=== PATIENT | male | born 1945 | race Caucasian/White ===

== ENCOUNTER → 2016-11-08 | Outpatient (CLI) | payer MEDICARE ==
[~2016-11-08] MED LIST: OMNIPAQUE 350 MG/ML, 75ML BOTTLE ONE
== END | disposition home or self-care (01) ==
LOC: CFH 09:54
PROVIDERS: ATTEND Nurse Practitioner Family
DX: I25.10 Atherosclerotic heart disease of native coronary artery without angina pectoris (principal); J42 Unspecified chronic bronchitis; K76.0 Fatty (change of) liver, not elsewhere classified
CPT/HCPCS: 71260; Q9967

== ENCOUNTER → 2016-12-11 | Outpatient (CLI) | payer MEDICARE ==
[~2016-12-11] MED LIST changes: -OMNIPAQUE 350 MG/ML, 75ML BOTTLE ONE; +REGADENOSON 0.4 MG/5 ML SYRINGE ONE
== END | disposition home or self-care (01) ==
LOC: CFH 06:41
PROVIDERS: ATTEND Internal Medicine Cardiovascular Disease
DX: I35.8 Other nonrheumatic aortic valve disorders (principal); I20.9 Angina pectoris, unspecified; I10 Essential (primary) hypertension; R94.31 Abnormal electrocardiogram [ECG] [EKG]; E11.9 Type 2 diabetes mellitus without complications
CPT/HCPCS: 78452; 93017; 93306; A9502; J2785

== ENCOUNTER → 2017-11-26 | Outpatient (CLI) | payer MEDICARE | END | disposition home or self-care (01) | LOC: RAD 07:59 | PROVIDERS: ATTEND Internal Medicine Cardiovascular Disease | DX: I10 Essential (primary) hypertension (principal); R94.31 Abnormal electrocardiogram [ECG] [EKG] | CPT/HCPCS: 78452; 93017; A9502; J2785 ==

== ENCOUNTER 2018-02-07 17:17 | Emergency (ER) | payer MEDICARE ==
[~2018-02-07] VITALS: Ht 177.8 cm; Wt 132.8 kg
[2018-02-07 17:27] VITALS: BP 110/74
[2018-02-07] MEDS ORDERED: OXYcodone/APAP 5/325MG TABLET PO ONE (18:30)
[2018-02-07] MEDS ORDERED: ONDANSETRON ODT 4 MG PO ONE (18:30)
== END 2018-02-07 19:00 | disposition home or self-care (01) ==
LOC: ED 18:45
DX: S30.0XXA Contusion of lower back and pelvis, initial encounter (principal); E78.5 Hyperlipidemia, unspecified; E78.00 Pure hypercholesterolemia, unspecified; I10 Essential (primary) hypertension; E11.9 Type 2 diabetes mellitus without complications; F17.200 Nicotine dependence, unspecified, uncomplicated; W11.XXXA Fall on and from ladder, initial encounter; Y93.89 Activity, other specified; Y99.8 Other external cause status; Y92.096 Garden or yard of other non-institutional residence as the place of occurrence of the external cause
CPT/HCPCS: 72131; 99284

== ENCOUNTER 2018-02-15 10:14 | Inpatient (IN) | payer MEDICARE ==
[~2018-02-15] VITALS: Ht 177.8 cm; Wt 131.2 kg
[2018-02-15] MEDS ORDERED: SODIUM CHLORIDE FLUSH 10ML SYR IVF ONE (11:00)
[2018-02-15] MEDS ORDERED: MORPHINE SULFATE 4 MG/ML, 1ML IVPush PRN (11:00)
[2018-02-15] MEDS ORDERED: MORPHINE SULFATE 4 MG/ML, 1ML ONE (11:20)
[2018-02-15 12:27] LABS: BASOPHILS # (AUTO) 0.03 x10^3/uL (0-0.1); BASOPHILS % (AUTO) 0 % (0-1); EOSINOPHILS # (AUTO) 0.03 x10^3/uL (0-0.4); EOSINOPHILS % (AUTO) 0 % (1-7); LYMPHOCYTES # (AUTO) 1.84 x10^3/uL (1-3.4); LYMPHOCYTES % (AUTO) 15 % (22-44); MD NO; MEAN CORPUSCULAR HEMOGLOBIN 31.6 pg (27.5-34.5); MEAN CORPUSCULAR HGB CONC 33.9 g/dL (33.2-36.2); MEAN CORPUSCULAR VOLUME 93.2 fL (81-97); MEAN PLATELET VOLUME 9.8 fL (7.4-10.4); MONOCYTES # (AUTO) 0.99 x10^3/uL (0.2-0.8); MONOCYTES % (AUTO) 8 % (2-9); NEUTROPHILS # (AUTO) 9.85 x10^3/uL (1.8-6.8); NEUTROPHILS % (AUTO) 77 % (42-75); PLATELET COUNT 234 x10^3/uL (130-400); RED BLOOD COUNT 5.04 x10^6/uL (4.38-5.82); RED CELL DISTRIBUTION WIDTH 14.5 % (9.4-14.8)
[2018-02-15 12:32] LABS: CULTURE INDICATED? YES; MICROSCOPIC INDICATED
[2018-02-15 12:33] LABS: INTERNATIONAL NORMALIZED RATIO 1.11 (0.93-1.1); PROTHROMBIN TIME 11.4 Seconds (9.6-11.5)
[2018-02-15] MEDS ORDERED: GLIP5TAB22 PO (12:35)
[2018-02-15] MEDS ORDERED: CITA20TA6 PO (12:35)
[2018-02-15] MEDS ORDERED: FENO160T PO (12:35)
[2018-02-15] MEDS ORDERED: ATOR-2 PO (12:35)
[2018-02-15] MEDS ORDERED: ASPI-496 PO (12:35)
[2018-02-15] MEDS ORDERED: IRBE1TAB37 PO (12:35)
[2018-02-15 12:37] LABS: ALBUMIN 3.9 g/dL (3.4-5.0); ANION GAP 5 mmol/L (5-15); CALCIUM 9.3 mg/dL (8.5-10.1); CHLORIDE 107 mmol/L (98-107); CREATININE 1.04 mg/dL (0.7-1.3)
[2018-02-15] MEDS ORDERED: HYDROmorphone 2 MG/ML, 1ML IVPush PRN ×2 (14:00→15:00)
[2018-02-15] MEDS ORDERED: HYDROmorphone 2 MG/ML, 1ML ONE ×2 (14:21→15:26)
[2018-02-15] MEDS ORDERED: ACETAMINOPHEN 325 MG TABLET PO PRN (15:30)
[2018-02-15] MEDS ORDERED: DEXTROSE 4 GM TAB.CHEW PO PRN (15:30)
[2018-02-15] MEDS ORDERED: POLYETHYLENE GLYCOL 17 GM PACKET PO PRN (15:30)
[2018-02-15] MEDS ORDERED: BACLOFEN 10 MG TABLET PO PRN (15:30)
[2018-02-15] MEDS ORDERED: ONDANSETRON 2MG/ML, 2ML IVPush PRN (15:30)
[2018-02-15] MEDS ORDERED: NITROGLYCERIN 0.4 MG BOTTLE (25 TABS) SL PRN (15:30)
[2018-02-15] MEDS ORDERED: DEXTROSE 50%, 50ML SYRINGE IVPush PRN (15:30)
[2018-02-15] MEDS ORDERED: morphine SULFATE 10 MG/ML, 1ML IVPush PRN (15:30)
[2018-02-15] MEDS ORDERED: GLUCAGON 1 MG IM PRN (15:30)
[2018-02-15] MEDS ORDERED: ONDANSETRON ODT 4 MG PO PRN (15:30)
[2018-02-15] MEDS ORDERED: NITROGLYCERIN 0.4 MG/SPRAY SL PRN (15:30)
[2018-02-15] MEDS ORDERED: NICOTINE 14MG/24 HR PATCH.TD24 TD ONE (16:00)
[2018-02-15 17:00] VITALS: BP 157/57
[2018-02-15] MEDS: GABAPENTIN 100 MG CAPSULE PO SCH ×2 (17:13→20:08)
[2018-02-15] MEDS: KETOROLAC 30 MG/1 ML IV PRN (17:14)
[2018-02-15] MEDS: INSULIN LISPRO 100 UNITS/ML, PEN SQ-INSULIN SCH ×2 (17:15→20:12)
[2018-02-15] MEDS: ENOXAPARIN 40 MG/0.4 ML SQ SCH (19:39)
[2018-02-15 20:00] VITALS: BP 129/69
[2018-02-15] MEDS: ASPIRIN 81 MG TABLET EC PO SCH (20:08)
[2018-02-15] MEDS: ATORVASTATIN 80 MG TABLET PO SCH (20:08)
[2018-02-15] MEDS: SODIUM CHLORIDE FLUSH 10ML SYR IVF SCH (20:09)
[2018-02-15] MEDS ORDERED: TRAZODONE 50MG TABLET PO PRN (21:00)
[2018-02-16] MEDS: OXYcodone IR 5MG TABLET PO PRN ×3 (00:08→19:34)
[2018-02-16 01:35] VITALS: BP 125/72
[2018-02-16] MEDS: GABAPENTIN 100 MG CAPSULE PO SCH ×3 (05:33→19:33)
[2018-02-16] MEDS: INSULIN LISPRO 100 UNITS/ML, PEN SQ-INSULIN SCH ×4 (07:00→19:39)
[2018-02-16 07:31] LABS: BASOPHILS # (AUTO) 0.03 x10^3/uL (0-0.1); BASOPHILS % (AUTO) 0 % (0-1); EOSINOPHILS # (AUTO) 0.06 x10^3/uL (0-0.4); EOSINOPHILS % (AUTO) 1 % (1-7); LYMPHOCYTES # (AUTO) 1.26 x10^3/uL (1-3.4); LYMPHOCYTES % (AUTO) 14 % (22-44); MD NO; MEAN CORPUSCULAR HEMOGLOBIN 31.1 pg (27.5-34.5); MEAN CORPUSCULAR HGB CONC 33.2 g/dL (33.2-36.2); MEAN CORPUSCULAR VOLUME 93.6 fL (81-97); MEAN PLATELET VOLUME 9.4 fL (7.4-10.4); MONOCYTES # (AUTO) 0.61 x10^3/uL (0.2-0.8); MONOCYTES % (AUTO) 7 % (2-9); NEUTROPHILS # (AUTO) 6.87 x10^3/uL (1.8-6.8); NEUTROPHILS % (AUTO) 78 % (42-75); PLATELET COUNT 207 x10^3/uL (130-400); RED BLOOD COUNT 5.05 x10^6/uL (4.38-5.82); RED CELL DISTRIBUTION WIDTH 14.1 % (9.4-14.8)
[2018-02-16 07:34] VITALS: BP 148/70
[2018-02-16] MEDS ORDERED: CITALOPRAM 20 MG TABLET PO SCH (09:00)
[2018-02-16] MEDS: ASPIRIN 81 MG TABLET EC PO SCH ×2 (09:00→19:33)
[2018-02-16] MEDS: FENOFIBRATE 145 MG TABLET PO SCH (10:07)
[2018-02-16] MEDS: HYDROCHLOROTHIAZIDE 12.5 MG CAPSULE PO SCH (10:07)
[2018-02-16] MEDS ORDERED: LIDOCAINE/PF 1%, 30ML ONE (10:07)
[2018-02-16] MEDS: IRBESARTAN 150 MG TABLET PO SCH (10:08)
[2018-02-16] MEDS: SENNA/DOCUSATE TABLET PO SCH (10:08)
[2018-02-16] MEDS: SODIUM CHLORIDE FLUSH 10ML SYR IVF SCH ×2 (10:08→19:34)
[2018-02-16] MEDS ORDERED: FLUMAZENIL 0.1 MG/1 ML, 5ML ONE (10:13)
[2018-02-16] MEDS ORDERED: NALOXONE 1 MG/ML, 2ML ONE (10:13)
[2018-02-16] MEDS ORDERED: FENTANYL PF 100 MCG/2ML ONE (10:13)
[2018-02-16] MEDS ORDERED: MIDAZOLAM 1 MG/ML, 5ML ONE (10:13)
[2018-02-16] MEDS ORDERED: PROMETHAZINE 25 MG/ML, 1ML ONE (10:20)
[2018-02-16] MEDS ORDERED: CEFAZOLIN PMX 1GM/50ML 50 ML ONE (10:20)
[2018-02-16] MEDS ORDERED: MEPERIDINE/PF 50 MG/ML ONE ×2 (10:20→10:57)
[2018-02-16] MEDS: DULOXETINE 30 MG CAPSULE.DR PO SCH ×2 (11:30→19:43)
[2018-02-16 12:47] VITALS: BP 126/55
[2018-02-16] MEDS: POLYETHYLENE GLYCOL 17 GM PACKET PO SCH ×2 (16:27→19:34)
[2018-02-16] MEDS: ENOXAPARIN 40 MG/0.4 ML SQ SCH (17:00)
[2018-02-16] MEDS: ATORVASTATIN 80 MG TABLET PO SCH (19:33)
[2018-02-16 20:59] VITALS: BP 128/72
[2018-02-16] MEDS: KETOROLAC 30 MG/1 ML IV PRN (23:30)
[2018-02-17 02:35] VITALS: BP 137/81
[2018-02-17] MEDS: GABAPENTIN 100 MG CAPSULE PO SCH (06:09)
[2018-02-17] MEDS: INSULIN LISPRO 100 UNITS/ML, PEN SQ-INSULIN SCH ×4 (07:00→20:44)
[2018-02-17 07:22] VITALS: BP 145/81
[2018-02-17] MEDS: ASPIRIN 81 MG TABLET EC PO SCH ×2 (08:10→20:42)
[2018-02-17] MEDS: FENOFIBRATE 145 MG TABLET PO SCH (08:10)
[2018-02-17] MEDS: IRBESARTAN 150 MG TABLET PO SCH (08:10)
[2018-02-17] MEDS: HYDROCHLOROTHIAZIDE 12.5 MG CAPSULE PO SCH (08:11)
[2018-02-17] MEDS: SENNA/DOCUSATE TABLET PO SCH (08:11)
[2018-02-17] MEDS: DULOXETINE 30 MG CAPSULE.DR PO SCH ×2 (08:14→20:42)
[2018-02-17] MEDS: SODIUM CHLORIDE FLUSH 10ML SYR IVF SCH ×2 (08:14→20:44)
[2018-02-17] MEDS: POLYETHYLENE GLYCOL 17 GM PACKET PO SCH ×2 (08:15→09:00)
[2018-02-17] MEDS: GABAPENTIN 300 MG CAPSULE PO SCH ×3 (09:00→20:42)
[2018-02-17 12:31] VITALS: BP 113/66
[2018-02-17] MEDS: ENOXAPARIN 40 MG/0.4 ML SQ SCH (16:16)
[2018-02-17 20:08] VITALS: BP 133/63
[2018-02-17] MEDS: ATORVASTATIN 80 MG TABLET PO SCH (20:42)
[2018-02-17] MEDS: OXYcodone IR 5MG TABLET PO PRN (20:42)
[2018-02-17] MEDS: KETOROLAC 30 MG/1 ML IV PRN (23:19)
[2018-02-18 02:20] VITALS: BP 131/70
[2018-02-18] MEDS: INSULIN LISPRO 100 UNITS/ML, PEN SQ-INSULIN SCH ×2 (07:00→11:00)
[2018-02-18] MEDS: IRBESARTAN 150 MG TABLET PO SCH (08:21)
[2018-02-18] MEDS: ASPIRIN 81 MG TABLET EC PO SCH (08:21)
[2018-02-18] MEDS: DULOXETINE 30 MG CAPSULE.DR PO SCH (08:21)
[2018-02-18] MEDS: FENOFIBRATE 145 MG TABLET PO SCH (08:21)
[2018-02-18] MEDS: GABAPENTIN 300 MG CAPSULE PO SCH (08:21)
[2018-02-18] MEDS: HYDROCHLOROTHIAZIDE 12.5 MG CAPSULE PO SCH (08:21)
[2018-02-18] MEDS: SENNA/DOCUSATE TABLET PO SCH (08:22)
[2018-02-18] MEDS: SODIUM CHLORIDE FLUSH 10ML SYR IVF SCH (08:22)
[2018-02-18] MEDS: POLYETHYLENE GLYCOL 17 GM PACKET PO SCH (09:00)
[2018-02-18 09:10] VITALS: BP 122/79
[2018-02-18] MEDS ORDERED: GABA300C10 PO (11:05)
[2018-02-18] MEDS ORDERED: IBUP-1221 PO (11:05)
[2018-02-18] MEDS ORDERED: DULO30CA2 PO (11:05)
[2018-02-18] MEDS ORDERED: BACL-19 PO (11:05)
[2018-02-18 12:45] VITALS: BP 130/74
[2018-02-18] MEDS ORDERED: OXYC5CAP2 PO (13:12)
== END 2018-02-18 13:22 | disposition home or self-care (01) | DRG 516 ==
LOC: ED 11:42 → EDIP 15:12 → 3NW 16:00 → DCLOUNGE 02-18 13:09
PROVIDERS: ADMIT Internal Medicine; ATTEND Internal Medicine
PROC: 0QU03JZ Supplement Lumbar Vertebra with Synthetic Substitute, Percutaneous Approach (ICD-10-PCS; principal; 2018-02-16)
DX: S32.029A Unspecified fracture of second lumbar vertebra, initial encounter for closed fracture (principal); D68.69 Other thrombophilia; E11.9 Type 2 diabetes mellitus without complications; I10 Essential (primary) hypertension; F17.210 Nicotine dependence, cigarettes, uncomplicated; M54.16 Radiculopathy, lumbar region; D72.829 Elevated white blood cell count, unspecified; E78.00 Pure hypercholesterolemia, unspecified; S32.039A Unspecified fracture of third lumbar vertebra, initial encounter for closed fracture; F32.9 Major depressive disorder, single episode, unspecified; W11.XXXA Fall on and from ladder, initial encounter; R32 Unspecified urinary incontinence; R35.0 Frequency of micturition; G89.29 Other chronic pain; W18.39XA Other fall on same level, initial encounter; Z91.81 History of falling; Y93.89 Activity, other specified; Y92.89 Other specified places as the place of occurrence of the external cause; Z79.899 Other long term (current) drug therapy
CPT/HCPCS: 36415; 72131; 72148; 72170; 80048; 81001; 82040; 82962; 85025; 85610; 85730; 87086; 96374; 96375; 99156; 99157; 99285; G0378; J0690; J1170; J1885; J2175; J2250; J2550; J3010; J3490; 22511; J1815; J2310